=== PATIENT | female | born 1975 | race Caucasian/White ===

== ENCOUNTER 2016-11-15 21:31 | Emergency (ER) | payer OTHER ==
[~2016-11-15 21:31] MED LIST: ALBUTEROL SULF8.5 GM IH; ALEVE220 M3 PO; ALEVE220 MG; AMITRIPTYLINE H50 M1 PO; ATORVASTATIN CA20 M1 PO; BACTRIM DS TAB1 EAC2 PO; BENTYL20 M1 PO; CEFDINIR300 M1 PO; CITRATE OF MAG300 M1 PO; COLACE100 M1 PO; CYCLOBENZAPRINE5 M1 PO; DARVOCET-N 1001 TAB; DARVOCET-N 1001 TAB PO; FAMVIR500 M1 PO; GABAPENTIN300 M1 PO; GABAPENTIN400 M3 PO; GLIPIZIDE5 MG PO; HUMALOG100 UNITS/ SC; HUMULIN N100 U/ML SQ; HUMULIN N100 UNIT/2 SC; HUMULIN-R100 UNITS/ IM; HUMULIN-R100 UNITS/ SC; HYDROCODON-ACE1 EA16 PO; HYDROXYZINE HCL25 MG PO; HYDROXYZINE PAM25 MG PO; LANTUS100 UNITS/ SC; LIPITOR20 MG PO; MACROBID 100 M100 M1 PO; MED FOR BLADDER; METFORMIN HCL500 M4 PO; METFORMIN HCL500 MG PO; MIRALAX12 EA PO; MOTRIN600 MG PO; MUCINEX D ER 61 EACH PO; NORCO 5/325 TAB1 TAB PO; NORCO 5/3251 TA1 PO; NOVOLIN R100 UNIT/1 SC; PAIN RELIEF325 M1 PO; PAXIL20 MG PO; PAXIL30 MG PO; PAXIL40 MG PO; PRILOSEC OTC20 M1 PO; PROAIR HFA8.5 GM INH; ROBITUSSIN COU118 M8 PO; STOOL SOFTENER100 M1 PO; TRAZODONE HCL150 MG PO; TRAZODONE50 MG PO; TYLENOL500 MG; ULTRAM50 M1 PO; VICTOZA 2-0.6 MG/0.1 SC; VICTOZA 2-0.6 MG/0.1 SQ; ZITHROMAX500 M2 PO
[2016-11-15] MEDS ORDERED: ADVAIR INH (21:45)
[2016-11-15] MEDS ORDERED: Z-PACK (21:46)
[2017-05-08] MEDS ORDERED: HUMALOG100 UNITS/ SC ×2 (12:59)
[2017-05-08] MEDS ORDERED: PROMETHAZINE-C118 ML PO (14:55)
[2017-05-23] MEDS ORDERED: AZITHROMYCIN250 M1 PO (15:00)
== END 2016-11-15 22:30 ==
LOC: EDMED 21:31
DX: J06.9 Acute upper respiratory infection, unspecified (principal); R07.89 Other chest pain; E11.9 Type 2 diabetes mellitus without complications; E78.5 Hyperlipidemia, unspecified; J45.909 Unspecified asthma, uncomplicated; Z79.4 Long term (current) use of insulin; Z79.51 Long term (current) use of inhaled steroids; Z79.899 Other long term (current) drug therapy

== ENCOUNTER 2016-12-24 12:56 | Emergency (ER) | payer OTHER ==
[~2016-12-24 12:56] MED LIST changes: +ADVAIR INH; +Z-PACK
[2016-12-24 13:40] LABS: KETONE-BETA (WHOLE BLOOD) 0.1 mmol/L (0.0-0.6)
[2016-12-24 13:57] LABS: ANION GAP 16 mmol/L (0-20); BLOOD UREA NITROGEN 11 mg/dl (6-24); CALCIUM 8.9 mg/dl (8.5-10.5); CARBON DIOXIDE-VENOUS 19 mmol/L (22-32); CHLORIDE 103 mmol/l (96-110); CREATININE 0.74 mg/dl (0.50-1.10); GLUCOSE 435 mg/dL (70-110); POTASSIUM 4.1 mmol/L (3.7-5.1); SODIUM 134 mmol/L (135-145); eGFR VALUE FOR BLACK >90 mL/Min
[2016-12-24 14:19] LABS: BASO % 0.4 % (0-2); EOSINOPHIL ABSOLUTE COUNT 0.2 tho/cmm (0.0-0.7); HCT-HEMATOCRIT 42.8 % (34.0-49.0); HGB-HEMOGLOBIN 15.2 gm/dl (12.0-15.5); IMMATURE GRANULOCYTES ABSOLUTE 0.02 tho/cmm (0-0.03); IMMATURE GRANULOCYTES PERCENT 0.3 % (0-0.3); LYMPH % 32.3 % (20-45); LYMPH ABSOLUTE COUNT 2.3 tho/cmm (0.8-4.5); MCH (MEAN CORPUSCULAR HGB) 28.9 pg (28.0-32.0); MCHC MEAN CORPUSCULAR HGB CONC 35.5 % (32.0-36.0); MCV (MEAN CELL VOLUME) 81.4 fl (82.0-96.0); MEAN PLATELET VOLUME 10.2 cmc (9.4-12.4); MONO % 3.3 % (0-12); MONOCYTE ABSOLUTE COUNT 0.2 tho/cmm (0.0-1.2); NEUTROPHIL ABSOLUTE COUNT 4.3 tho/cmm (1.6-8.0); NEUTROPHIL-AUTOMATED 4.3 tho/cmm (1.6-8.0); NEUTROPHILS % 60.7 % (40-80); PLATELET COUNT 233 tho/cmm (150-450); RED BLOOD COUNT 5.26 mil/cmm (4.00-5.20); RED CELL DISTRIBUTION WIDTH 12.8 % (12.4-16.4); WHITE BLOOD COUNT 7.1 tho/cmm (4.0-10.0)
[2017-05-08] MEDS ORDERED: HUMALOG100 UNITS/ SC ×2 (12:59)
[2017-05-08] MEDS ORDERED: PROMETHAZINE-C118 ML PO (14:55)
[2017-05-23] MEDS ORDERED: AZITHROMYCIN250 M1 PO (15:00)
== END 2016-12-24 15:45 ==
LOC: EDMED 12:56
PROVIDERS: Emergency Medicine
DX: E11.65 Type 2 diabetes mellitus with hyperglycemia (principal); Z91.14 Patient's other noncompliance with medication regimen; Z79.4 Long term (current) use of insulin; Z85.42 Personal history of malignant neoplasm of other parts of uterus; Z87.442 Personal history of urinary calculi; Z90.710 Acquired absence of both cervix and uterus; Z90.49 Acquired absence of other specified parts of digestive tract; Z79.899 Other long term (current) drug therapy
CPT/HCPCS: J1815; J7030

== ENCOUNTER 2017-05-15 23:48 | Emergency (ER) | payer OTHER ==
[~2017-05-15] VITALS: Ht 154.9 cm; Wt 77.3 kg
[~2017-05-15 23:48] MED LIST changes: -ATORVASTATIN CA20 M1 PO; +LIPITOR20 M1 PO; +PROMETHAZINE-C118 ML PO
== END 2017-05-16 00:45 | disposition left against medical advice (07) ==
LOC: EDMED 23:48
DX: R10.30 Lower abdominal pain, unspecified (principal); Z53.29 Procedure and treatment not carried out because of patient's decision for other reasons